=== PATIENT | male | born 1995 | race African-American/Black ===

== ENCOUNTER 2022-02-19 20:20 | Emergency (ER) | payer SELFPAY ==
[2022-02-19] MEDS ORDERED: Ketorolac Tromethamine 30 MG/ML VIAL ONE (22:26)
== END 2022-02-19 22:03 | disposition home or self-care (01) ==
LOC: CSHERS 20:20
DX: K04.7 Periapical abscess without sinus (principal); J45.909 Unspecified asthma, uncomplicated
CPT/HCPCS: 41800; 96372; J1885